=== PATIENT | male | born 1940 | race Two or more races ===

== ENCOUNTER 2018-02-14 20:23 | Emergency (ER) | payer SELFPAY ==
[2018-02-14] MEDS ORDERED: AMPICILLIN/SULBACTAM 3 GM in SODIUM CHLORIDE 0.9% MINIBAG 100 ML IV STA (21:13)
[2018-02-14] MEDS ORDERED: BUPIVACAINE 0.5%-EPI 1:200000 PF 10 ML VIAL SUBQ STA (21:13)
--- NOTE | 2018-02-14 21:19 | ED Physician Documentation ---
PD HPI UPPER EXT INJURY - Stated complaint Stated Complaint: RT HAND SWELLING/PX - Chief complaint Chief Complaint: Ext Problem - History obtained from History obtained from: Patient, Family - History of Present Illness Location: Other (He was gardening 6 days ago and started to feel pain in the right thumb, the IP joint. He has had progressive pain and swelling which now is causing him to lose sleep and is radiating up to the wrist with redness and warmth but no fevers or chills. He has no health problems but does not see a doctor regularly.) Review of Systems Ten Systems: 10 systems reviewed and negative Constitutional: denies: Fever, Chills Cardiac: denies: Chest pain / pressure, Palpitations Respiratory: denies: Dyspnea, Cough GI: denies: Abdominal Pain PD PAST MEDICAL HISTORY - Past Medical History Past Medical History: No Cardiovascular: None Respiratory: None Neuro: None Endocrine/Autoimmune: None GI: None : None HEENT: None Psych: None Musculoskeletal: None Derm: None - Past Surgical History Past Surgical History: Yes Ortho: Spine surgery - Present Medications Home Medications: Ambulatory Orders Medication Instructions Recorded Confirmed Cephalexin [Keflex] 500 mg PO QID #40 capsule 02/14/18 HYDROcod/ACETAM 5/325 [[place] 5/325] 1 - 2 ea PO Q6H PRN #10 tablet 02/14/18 Sulfamethoxazole/Trimethoprim 1 each PO BID 10 Days tablet 02/14/18 [Sulfamethoxazole-Tmp Ds Tablet] - Allergies Allergies/Adverse Reactions: Allergies Allergy/AdvReac Type Severity Reaction Status Date / Time No Known Drug Allergies Allergy Verified 02/14/18 21:46 - Social History Does the pt smoke?: No Smoking Status: Never smoker Does the pt drink ETOH?: No Does the pt have substance abuse?: No - Family History Family history: reports: Non contributory - Immunizations Immunizations are current?: No - POLST Patient has POLST: No PD ED PE NORMAL - Vitals Vital signs reviewed: Yes - General General: Alert and oriented X 3, No acute distress - HEENT HEENT: PERRL, EOMI - Neck Neck: Supple, no meningeal sign, No bony TTP, No JVD - Cardiac Cardiac: RRR, No murmur - Respiratory Respiratory: No respiratory distress, Clear bilaterally - Abdomen Abdomen: Normal bowel sounds, Soft, Non tender - Derm Derm: Normal color, Warm and dry - Extremities Extremities: Other (He has significant edema swelling and redness of the right thumb that seems focused over the proximal phalanx and IP joint. The tip itself is not tender, so it is not really consistent with a felon. He has warmth and redness and tenderness extending up the extensor tendons to the wrist joint and he cannot range the wrist, the MCP, or the IP joint on that side. There is no palpable abscess.) - Neuro Neuro: Alert and oriented X 3, Normal speech - Psych Psych: Normal mood, Normal affect Results - Vitals Vitals: Vital Signs - 24 hr 02/14/18 20:26 Temperature 37.2 C Heart Rate 78 Respiratory 16 Rate Blood Pressure 167/73 H O2 Saturation 98 Oxygen O2 Source Room air - Labs Labs: Laboratory Tests 02/14/18 02/14/18 21:30 21:30 WBC 10.6 RBC 4.81 Hgb 15.7 Hct 45.4 MCV 94.5 H MCH 32.8 H MCHC 34.7 RDW 13.3 Plt Count 196 MPV 8.9 Neut # (Auto) 9.4 H Lymph # (Auto) 0.7 L [place] # (Auto) 0.5 Eos # (Auto) 0.0 Baso # (Auto) 0.0 Absolute Nucleated RBC 0.00 Nucleated RBC % 0.0 Sodium 134 L Potassium 3.5 Chloride 98 L Carbon Dioxide 27 Anion Gap 9.0 BUN 15 Creatinine 0.8 Estimated GFR (MDRD) 93 Glucose 136 H Calcium 8.8 Procedures - Regional nerve block Nerve block site: Radial Right / left: Right Nerve block anesthesia: Marcaine 0.5% (with epi) Nerve block aftercare: Patient tolerated well - Arthrocentesis Joint: Other (Right interphalangeal joint of the thumb) Preparation: Consent obtained, Sterile prep and drape Anesthesia: Lidocaine 1% Fluid: Bloody (Only about 0.2 mL's of bloody fluid was obtained and it was sent for culture.) Aftercare: Dressing applied PD MEDICAL DECISION MAKING - ED course ED course: With cellulitis of the right thumb extending up towards the wrist on the extensor side, definitely not a flexor Tamia synovitis. He was administered Unasyn here. He does not have an elevated white blood cell count but he does have a modest left shift. Pain is not out of proportion to exam and his x-rays without other acute findings. He does not have a primary care physician. He was administered IV Unasyn here, and also oral Bactrim. He had good pain relief with a radial nerve block. Since he does not have primary care follow- up he was advised to follow-up with me tomorrow in the emergency department for wound check. - Sepsis Event Vital Signs: Vital Signs - 24 hr 02/14/18 20:26 Temperature 37.2 C Heart Rate 78 Respiratory 16 Rate Blood Pressure 167/73 H O2 Saturation 98 Oxygen O2 Source Room air Departure - Departure Disposition: Home, Self Care Clinical Impression: Cellulitis Qualifiers: Site of cellulitis: extremity Site of cellulitis of extremity: upper extremity Laterality: right Qualified Code(s): L03.113 - Cellulitis of right upper limb Pain in extremity Qualifiers: Extremity pain location: upper extremity Laterality: right Qualified Code(s): M79.601 - Pain in right arm Condition: Good Record reviewed to determine appropriate education?: Yes Instructions: Cellulitis Dc Prescriptions: Cephalexin [Keflex] 500 mg PO QID #40 capsule HYDROcod/ACETAM 5/325 [[place] 5/325] 1 - 2 ea PO Q6H PRN #10 tablet PRN Reason: Pain Sulfamethoxazole/Trimethoprim [Sulfamethoxazole-Tmp Ds Tablet] 1 each PO BID 10 Days tablet Comments: Follow-up with me tomorrow afternoon in the emergency department for recheck, sooner if worse. Elevate the hand as much as possible. Your blood pressure was elevated today on check into the emergency department. This does not mean that you have hypertension, it is a common phenomenon to come to the emergency department and have elevated blood pressure. I recommend that you see your primary care physician within the week to have it rechecked when you are feeling better.
[2018-02-14 21:44] LABS: BASOPHILS % (AUTO) 0.2 %; EOSINOPHILS % (AUTO) 0.1 %; HGB - HEMOGLOBIN 15.7 g/dL (14.0-18.0); LYMPHOCYTES # (AUTO) 0.7 10^3/uL (1.5-3.5); LYMPHOCYTES % (AUTO) 6.2 %; MEAN CORPUSCULAR HEMOGLOBIN 32.8 pg (27.0-31.0); MEAN CORPUSCULAR HGB CONC 34.7 g/dL (32.0-36.0); MEAN CORPUSCULAR VOLUME 94.5 fL (80.0-94.0); MEAN PLATELET VOLUME 8.9 fL (7.4-11.4); MONOCYTES # (AUTO) 0.5 10^3/uL (0.0-1.0); MONOCYTES % (AUTO) 4.6 %; NEUTROPHILS # (AUTO) 9.4 10^3/uL (1.5-6.6); NEUTROPHILS % (AUTO) 88.9 %; PLT - PLATELET COUNT 196 10^3/uL (130-450); RED BLOOD COUNT 4.81 10^6/uL (4.70-6.10); RED CELL DISTRIBUTION WIDTH 13.3 % (12.0-15.0); WHITE BLOOD COUNT 10.6 x10^3/uL (4.8-10.8)
[2018-02-14 21:45] LABS: CALCIUM 8.8 mg/dL (8.5-10.3); CREATININE 0.8 mg/dL (0.6-1.2)
[2018-02-14] MEDS ORDERED: HYDROcod/ACET 5/325 Prepack 4 PO STA (22:08)
[2018-02-14] MEDS ORDERED: SULFAMETH/TRIMETH DS 800/160 MG TABLET PO STA (22:08)
--- NOTE | 2018-02-14 22:16 | XRAY Report ---
Procedure Date: 02/14/2018 Accession Number: [id number] / [id number] Procedure: XR - Hand 3 View RT CPT Code: FULL RESULT: EXAM: RIGHT HAND RADIOGRAPHY EXAM DATE: 02/14/2018 09:45 PM. CLINICAL HISTORY: Hand infection. COMPARISON: None. TECHNIQUE: 4 views. FINDINGS: Bones: No acute fractures or suspicious bone lesions. No acute erosions or periosteal reaction. Joints: No subluxations. 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 Soft Tissues: Unremarkable. IMPRESSION: No acute radiographic abnormalities. If osteomyelitis is suspected, MRI with contrast would be more sensitive and specific. [facility]
[2018-02-14 22:32] VITALS: BP 156/79
== END 2018-02-14 22:38 | disposition home or self-care (01) ==
LOC: ED 20:23
DX: L03.113 Cellulitis of right upper limb (principal); M79.641 Pain in right hand; R03.0 Elevated blood-pressure reading, without diagnosis of hypertension
CPT/HCPCS: 20610; 36415; 73130; 80048; 85025; 87070; 87205; 96365; 99283; A9270

== ENCOUNTER 2018-02-15 15:00 | Emergency (ER) | payer SELFPAY ==
[2018-02-15 15:17] VITALS: BP 155/76
--- NOTE | 2018-02-15 15:58 | ED Physician Documentation ---
PD HPI UPPER EXT INJURY - Stated complaint Stated Complaint: R HAND PAIN - Chief complaint Chief Complaint: Ext Problem - History obtained from History obtained from: Patient - History of Present Illness Location: Other (He returns as requested for recheck of right upper extremity cellulitis involving the thumb up to the wrist. He is doing much better today, no fevers. Pain went from a 10 to a 4. Culture is no growth to date.) Review of Systems Constitutional: denies: Fever, Chills Respiratory: denies: Dyspnea, Cough GI: denies: Abdominal Pain, Nausea, Vomiting PD PAST MEDICAL HISTORY - Past Medical History Cardiovascular: None Respiratory: None Neuro: None Endocrine/Autoimmune: None GI: None : None HEENT: None Psych: None Musculoskeletal: None Derm: None - Past Surgical History Past Surgical History: Yes Ortho: Spine surgery - Present Medications Home Medications: Ambulatory Orders Medication Instructions Recorded Confirmed Cephalexin [Keflex] 500 mg PO QID #40 capsule 02/14/18 HYDROcod/ACETAM 5/325 [[place] 5/325] 1 - 2 ea PO Q6H PRN #10 tablet 02/14/18 Sulfamethoxazole/Trimethoprim 1 each PO BID 10 Days tablet 02/14/18 [Sulfamethoxazole-Tmp Ds Tablet] - Allergies Allergies/Adverse Reactions: Allergies Allergy/AdvReac Type Severity Reaction Status Date / Time No Known Drug Allergies Allergy Verified 02/14/18 21:46 - Social History Does the pt smoke?: No Smoking Status: Never smoker Does the pt drink ETOH?: No Does the pt have substance abuse?: No - Immunizations Immunizations are current?: No - POLST Patient has POLST: No PD ED PE NORMAL - Vitals Vital signs reviewed: Yes - General General: Alert and oriented X 3, No acute distress - Extremities Extremities: Other (The cellulitis looks much better today, yesterday he really had no range of motion at the IP joint of the right thumb or the wrist and he has moderate range of motion today and he is much less tender.) - Neuro Neuro: Alert and oriented X 3, Normal speech Results - Vitals Vitals: Vital Signs - 24 hr 02/15/18 15:12 Temperature 36.9 C Heart Rate 72 Respiratory 18 Rate Blood Pressure 155/76 H O2 Saturation 96 Oxygen O2 Source Room air PD MEDICAL DECISION MAKING - Sepsis Event Vital Signs: Vital Signs - 24 hr 02/15/18 15:12 Temperature 36.9 C Heart Rate 72 Respiratory 18 Rate Blood Pressure 155/76 H O2 Saturation 96 Oxygen O2 Source Room air Departure - Departure Disposition: 01 Home, Self Care Clinical Impression: Cellulitis Qualifiers: Site of cellulitis: extremity Site of cellulitis of extremity: upper extremity Laterality: right Qualified Code(s): L03.113 - Cellulitis of right upper limb Pain in extremity Qualifiers: Extremity pain location: upper extremity Laterality: right Qualified Code(s): M79.601 - Pain in right arm Instructions: Cellulitis Dc Comments: As discussed it looks like it is doing much better today, if you start to worsen or run fevers please return for reevaluation. Your blood pressure was elevated today on check into the emergency department. This does not mean that you have hypertension, it is a common phenomenon to come to the emergency department and have elevated blood pressure. I recommend that you see your primary care physician within the week to have it rechecked when you are feeling better.
== END 2018-02-15 16:02 | disposition home or self-care (01) ==
LOC: ED 15:00
DX: L03.113 Cellulitis of right upper limb (principal); M79.601 Pain in right arm; R03.0 Elevated blood-pressure reading, without diagnosis of hypertension
CPT/HCPCS: 99282; 99283

== ENCOUNTER 2021-08-11 08:40 | Outpatient (CLI) | payer SELFPAY | END 2021-08-11 08:41 | disposition critical access hospital (66) | LOC: EMS 08:40 | DX: R11.0 Nausea (principal); R53.81 Other malaise; J34.89 Other specified disorders of nose and nasal sinuses; R05.9 Cough, unspecified; R53.1 Weakness; Z20.822 Contact with and (suspected) exposure to COVID-19; W19.XXXA Unspecified fall, initial encounter | CPT/HCPCS: A0425; A0427 ==

== ENCOUNTER 2021-08-11 08:49 | Inpatient (IN) | payer MEDICARE ==
--- NOTE | 2021-08-11 09:04 | ED Physician Documentation ---
PD HPI URI - Stated complaint Stated Complaint: POSS C+ - History obtained from History obtained from: Patient - History of Present Illness Timing - onset: How many days ago (5) Timing duration: Days (5) Timing details: Abrupt onset (Started with symptoms 5 days ago with cough fevers nausea and poor p.o. intake. His tested positive for Covid the week prior.), Still present Associated symptoms: Fever, Chills, Dry cough, Dyspnea Contributing factors: Sick contact (his had COVID the week prior.) Improves by: Rest Worsened by: Activity Similar symptoms before: Has not had sx before Recently seen: Not recently seen Review of Systems Constitutional: reports: Fever, Chills Nose: reports: Congestion Throat: denies: Sore throat Cardiac: denies: Chest pain / pressure Respiratory: reports: Dyspnea, Cough, Wheezing GI: reports: Nausea, Vomiting, Diarrhea. denies: Abdominal Pain : denies: Dysuria Skin: denies: Rash Neurologic: reports: Generalized weakness, Near syncope. denies: Altered mental status, Headache Endocrine: denies: Easy bruising / bleeding Immunocompromised: denies: Immunocompromised, Chemotherapy PD PAST MEDICAL HISTORY - Past Medical History Cardiovascular: None Respiratory: None Neuro: None Endocrine/Autoimmune: None GI: None : None HEENT: None Psych: None Musculoskeletal: None Derm: None - Past Surgical History Past Surgical History: Yes Ortho: Spine surgery - Present Medications Home Medications: Ambulatory Orders Medication Instructions Recorded Confirmed No Known Home Medications 08/11/21 08/11/21 - Allergies Allergies/Adverse Reactions: Allergies Allergy/AdvReac Type Severity Reaction Status Date / Time No Known Drug Allergies Allergy Verified 08/11/21 09:13 - Social History Does the pt smoke?: No Smoking Status: Never smoker Does the pt drink ETOH?: No Does the pt have substance abuse?: No - Immunizations Immunizations are current?: No - POLST Patient has POLST: No PD ED PE NORMAL - Vitals Vital signs reviewed: Yes (sats 88% RA) - General General: Alert and oriented X 3, Well developed/nourished - HEENT HEENT: Pharynx benign. No: Moist mucous membranes - Neck Neck: Supple, no meningeal sign, No adenopathy - Cardiac Cardiac: RRR, No murmur - Respiratory Respiratory: No: Clear bilaterally - Abdomen Abdomen: Normal bowel sounds, Soft, Non distended, No organomegaly, Other (mild tender epigastric area) - Back Back: No CVA TTP - Derm Derm: Warm and dry. No: Normal color (pale) - Extremities Extremities: No edema, No calf tenderness / cord - Neuro Neuro: Alert and oriented X 3, No motor deficit, Normal speech Eye Opening: Spontaneous Motor: Obeys Commands Verbal: Oriented GCS Score: 15 Results - Vitals Vitals: Vital Signs - 24 hr 08/11/21 08/11/21 09:13 09:52 Temperature 37.7 C Heart Rate 81 80 Respiratory 32 H 22 Rate Blood Pressure 137/105 H O2 Saturation 88 L Oxygen O2 Source Nasal cannula Oxygen Flow Rate 3 - Labs Labs: Laboratory Tests 08/11/21 08/11/21 08/11/21 10:00 10:00 10:00 WBC 7.1 RBC 4.94 Hgb 16.0 Hct 46.5 MCV 94.1 H MCH 32.4 H MCHC 34.4 RDW 12.1 Plt Count 127 L MPV 12.0 H Neut # (Auto) 6.5 Lymph # (Auto) 0.3 L [place] # (Auto) 0.3 Eos # (Auto) 0.0 Baso # (Auto) 0.0 Absolute Nucleated RBC 0.00 Nucleated RBC % 0.0 Sodium 135 Potassium 3.7 Chloride 95 L Carbon Dioxide 24 Anion Gap 16.0 H BUN 35 H Creatinine 1.2 Estimated GFR (MDRD) 58 L Glucose 136 H Lactic Acid Calcium 7.9 L Total Bilirubin 1.1 H AST 48 H ALT 26 Alkaline Phosphatase 52 B-Natriuretic Peptide 41 Total Protein 7.0 Albumin 3.2 Globulin 3.8 Albumin/Globulin Ratio 0.8 L Lipase 105 H Nasal Adenovirus (PCR) Nasal B. parapertussis DNA (PCR) Nasal Coronavir 229E PCR Nasal Coronavir HKU1 PCR Nasal Coronavir NL63 PCR Nasal Coronavir OC43 PCR Nasal Enterovir/Rhinovir PCR Nasal Influenza B PCR Nasal Influenza A PCR Nasal Parainfluen 1 PCR Nasal Parainfluen 2 PCR Nasal Parainfluen 3 PCR Nasal Parainfluen 4 PCR Nasal RSV (PCR) Nasal B.pertussis DNA PCR Nasal C.pneumoniae (PCR) Prasad Human Metapneumo PCR Nasal M.pneumoniae (PCR) Nasal SARS-CoV-2 (PCR) 08/11/21 08/11/21 08/11/21 10:00 11:40 12:14 WBC RBC Hgb Hct MCV MCH MCHC RDW Plt Count MPV Neut # (Auto) Lymph # (Auto) [place] # (Auto) Eos # (Auto) Baso # (Auto) Absolute Nucleated RBC Nucleated RBC % Sodium Potassium Chloride Carbon Dioxide Anion Gap BUN Creatinine Estimated GFR (MDRD) Glucose Lactic Acid 3.1 H* 1.6 Calcium Total Bilirubin AST ALT Alkaline Phosphatase B-Natriuretic Peptide Total Protein Albumin Globulin Albumin/Globulin Ratio Lipase Nasal Adenovirus (PCR) NOT DETECTED Nasal B. parapertussis DNA (PCR) NOT DETECTED Nasal Coronavir 229E PCR NOT DETECTED Nasal Coronavir HKU1 PCR NOT DETECTED Nasal Coronavir NL63 PCR NOT DETECTED Nasal Coronavir OC43 PCR NOT DETECTED Nasal Enterovir/Rhinovir PCR NOT DETECTED Nasal Influenza B PCR NOT DETECTED Nasal Influenza A PCR NOT DETECTED Nasal Parainfluen 1 PCR NOT DETECTED Nasal Parainfluen 2 PCR NOT DETECTED Nasal Parainfluen 3 PCR NOT DETECTED Nasal Parainfluen 4 PCR NOT DETECTED Nasal RSV (PCR) NOT DETECTED Nasal B.pertussis DNA PCR NOT DETECTED Nasal C.pneumoniae (PCR) NOT DETECTED Prasad Human Metapneumo PCR NOT DETECTED Nasal M.pneumoniae (PCR) NOT DETECTED Nasal SARS-CoV-2 (PCR) DETECTED A - Rads (name of study) chest xray Radiology: Prelim report reviewed (diffuse infiltrates concerning for COVID.), See rad report PD MEDICAL DECISION MAKING - ED course Complexity details: reviewed results, considered differential (Close contact with Covid patient and now current URI symptoms and pneumonitis symptoms. Presume Covid. He also has poor intake with nausea and vomiting and appears dehydrated. Will give IV fluids as well.), d/w patient ED course: The patient has improved color and a little bit improved energy after IV fluids and nebulizer MDI. However he still maintaining low oxygenation on room air at 87 to 88%. He will need hospitalization for further treatment. I talked with the hospitalist who is in agreement. Departure - Departure Disposition: 66 [facility] DC/Xfer Clinical Impression: Pneumonia due to COVID-19 virus, Hypoxia, Dehydration, Generalized weakness Nausea and vomiting Qualifiers: Vomiting type: unspecified Qualified Code(s): R11.2 - Nausea with vomiting, unspecified Condition: Stable Record reviewed to determine appropriate education?: Yes
[2021-08-11] MEDS ORDERED: ONDANSETRON 4 MG/2 ML VIAL IVP STA (09:30)
[2021-08-11] MEDS ORDERED: SODIUM CHLORIDE 0.9% 1,000 ML IV STA ×2 (09:30→11:25)
[2021-08-11] MEDS ORDERED: ALBUTEROL 1 PUFF INH STA (09:31)
[2021-08-11] MEDS ORDERED: DEXAMETHASONE 10 MG/ML VIAL IVP STA (09:32)
--- NOTE | 2021-08-11 09:46 | XRAY Report ---
PROCEDURE: Chest 1 View X-Ray INDICATIONS: chest pain TECHNIQUE: One view of the chest was acquired. COMPARISON: None. FINDINGS: Surgical changes and devices: None. Lungs and pleura: No pleural effusions or pneumothorax. Subtle airspace opacities are seen scattered in bilateral lung limon more prominent in lower lobes concerning for multilobar infiltrates possibl y from COVID 19 infection. Mediastinum: Mediastinal contours appear normal. Heart size is normal. Bones and chest wall: No suspicious bony lesions. Overlying soft tissues appear unremarkable. IMPRESSION: Finding is concerning for bilateral patchy infiltrates possibly from COVID 19 infection. No pleural e ffusion or pneumothorax. Reviewed by: Loki Chaney MD on 08/11/2021 9:45 AM [facility] Approved by: Loki Chaney MD on 08/11/2021 9:45 AM [facility] Station ID: [id number]
[2021-08-11 10:20] LABS: ALBUMIN 3.2 g/dL (3.2-5.5); ALBUMIN/GLOBULIN RATIO 0.8 (1.0-2.2); BILIRUBIN,TOTAL 1.1 mg/dL (0.2-1.0); CALCIUM 7.9 mg/dL (8.5-10.3); CREATININE 1.2 mg/dL (0.6-1.2); POTASSIUM 3.7 mmol/L (3.5-5.0)
[2021-08-11 10:43] LABS: BASOPHILS % (AUTO) 0.1 %; HCT - HEMATOCRIT 46.5 % (42.0-52.0); LYMPHOCYTES # (AUTO) 0.3 10^3/uL (1.5-3.5); MEAN CORPUSCULAR HEMOGLOBIN 32.4 pg (27.0-31.0); MEAN CORPUSCULAR HGB CONC 34.4 g/dL (32.0-36.0); MEAN CORPUSCULAR VOLUME 94.1 fL (80.0-94.0); MONOCYTES # (AUTO) 0.3 10^3/uL (0.0-1.0); MONOCYTES % (AUTO) 3.7 %; NEUTROPHILS # (AUTO) 6.5 10^3/uL (1.5-6.6); NEUTROPHILS % (AUTO) 91.6 %; PLT - PLATELET COUNT 127 10^3/uL (130-450); RED BLOOD COUNT 4.94 10^6/uL (4.70-6.10); RED CELL DISTRIBUTION WIDTH 12.1 % (12.0-15.0); WHITE BLOOD COUNT 7.1 x10^3/uL (4.8-10.8)
[2021-08-11] MEDS ORDERED: ONDANSETRON 4 MG/2 ML VIAL IVP PRN (12:27)
[2021-08-11] MEDS ORDERED: ONDANSETRON ODT 4 MG TABLET TL PRN (12:27)
[2021-08-11] MEDS ORDERED: PROCHLORPERAZINE 10 MG/2 ML VIAL IVP PRN (12:27)
[2021-08-11] MEDS ORDERED: SODIUM CHLORIDE FLUSH 0.9% 10 ML SYRINGE IVP PRN (12:27)
[2021-08-11] MEDS ORDERED: ACETAMINOPHEN 325 MG TABLET PO PRN (12:27)
[2021-08-11] MEDS ORDERED: oxyCODONE 5 MG TABLET PO PRN (12:27)
[2021-08-11] MEDS ORDERED: NON FORMULARY MED (Remdesivir 200 MG) IVP ONE (12:30)
[2021-08-11 12:50] LABS: B. PARAPERTUSSIS- RESP PCR PAN NOT DETECTED; B. PERTUSSIS- RESP PCR PANEL NOT DETECTED; C. PNEUMONIAE- RESP PCR PANEL NOT DETECTED; CORONAVIRUS 229E-RESP PCR NOT DETECTED; CORONAVIRUS HKU1-RESP PCR NOT DETECTED; CORONAVIRUS NL63-RESP PCR NOT DETECTED; CORONAVIRUS OC43-RESP PCR NOT DETECTED; HUMAN METAPNEUMOVIRUS NOT DETECTED; INFLUENZA A- RESP PCR PANEL NOT DETECTED; INFLUENZA B - RESP PCR PANEL NOT DETECTED; M. PNEUMONIAE- RESP PCR PANEL NOT DETECTED; PARAINFLUENZA VIRUS 1 NOT DETECTED; PARAINFLUENZA VIRUS 2 NOT DETECTED; PARAINFLUENZA VIRUS 3 NOT DETECTED; PARAINFLUENZA VIRUS 4 NOT DETECTED; RHINOVIRUS/ENTEROVIRUS NOT DETECTED; RSV- RESP PCR PANEL NOT DETECTED
[2021-08-11 12:54] LABS: SARS-CoV-2 -RESP PCR PANEL DETECTED
[2021-08-11] MEDS: LACTATED RINGERS 1,000 ML IV SCH (14:28)
--- NOTE | 2021-08-11 14:45 | HISTORY & PHYSICAL EXAMINATION ---
Chief Complaint - Chief Complaint Chief Complaint: cough, fatigue and sob History of Present Illness - Admitted From Admitted From:: home via EMS - History Obtained From Records Reviewed: [facility] History obtained from: patient and Dr. Chirinos Exam Limitations: none - History of Present Illness HPI Comment/Other: He is an 81-year-old man who does not have any medical issues and does not see a physician. 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 His became ill with Covid approximately week and a half ago. She is still slightly ill but getting better. He became ill 5 days ago with cough, fevers, severe nausea and very poor p.o. intake. He really has not been able to take anything in because he just has no appetite. Barely drinking water. His nose has been congested, and he has a runny nose. But he denies a sore throat, dysphagia. He denies chest pain, pleuritic chest pain. He has a mild to moderate cough, and it makes him wheeze. Getting up to just walk to the bathroom makes him very short of breath. In addition to being without an appetite he has had diarrhea a few times a day. Occasional vomiting. And chronic and daily nausea. He has a headache but no confusion, seizures, or passing out. He has been so sick that he has been spending a lot of time either sitting or laying down and his buttock is starting to hurt from what he thinks is a sore that developed there. Today he could not get up to do anything so his called the ambulance and they brought him in. He was 88% on room air. Started on 2 L. He was seen in the emergency room was a temperature of 37.7. Heart rate 81. Respirations 32. Blood pressure 137/105. He was 88% on room air. He is a thin male. Mild respiratory distress. Lactic acid is initially 3.1 with a creatinine of 1.2 and a BUN of 35. With fluid resuscitation of 2 L, his lactic acid came down to 1.6. White cell count is normal. Hemoglobin is normal. MCV is 94.1. He is SARS COVID-19 positive. Chest x-ray has bilateral patchy infiltrates without pleural effusion or pneumothorax. History - Past Medical History Cardiovascular: reports: None Respiratory: reports: None Neuro: reports: None Endocrine/Autoimmune: reports: None GI: reports: None : reports: None HEENT: reports: None Psych: reports: None Musculoskeletal: reports: None Derm: reports: None MRSA Hx?: No - Past Surgical History Ortho: reports: Spine surgery - Family & Social History Family History Comment/Other: Dad was 36 when he his 16-year-old bride. He at age 45 of a heart attack. Mom in her late 80s and was healthy. 2 brothers and a sister. 1 brother has high blood pressure. 1 brother of "not taking care of his body". Very vague about what exactly killed him. 3 children. Unfortunately one of his daughters of ovarian cancer but the other 2 children are alive and healthy without any medical issues. Living arrangement: At home Living Situation: With spouse/s.o. Social History Notes: Born and raised in the [facility] and lived all over [place]. [place] the [place] ago when his baby daughter a [employer] en[employer] so he came to be with her. He and his live in their own rental home near 3 sisters. He smoked anywhere between a pack to 2 packs a day and stopped 20 years ago. 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 He denies any history of LSD, cocaine, heroin, LSD. 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 - Substance History Use: Uses substance without health or social issues: NONE Abuse: Recurrent use of substance despite neg consequences: NONE Dependence: Experiences withdrawal or developed tolerances: NONE - POLST Patient has POLST: No POLST Status: DNR Meds/Allgy - Home Medications Home Medications: Ambulatory Orders Medication Instructions Recorded Confirmed No Known Home Medications 08/11/21 08/11/21 - Allergies Allergies/Adverse Reactions: Allergies Allergy/AdvReac Type Severity Reaction Status Date / Time No Known Drug Allergies Allergy Verified 08/11/21 09:13 Review of Systems - Constitutional Constitutional: reports: Fatigue, Fever, Chills, Malaise, Weakness, Poor appet ite, Diaphoresis, Weight loss - Eyes Eyes: denies: Pain, Irritation, Amaurosis, Blurred vision, Vision loss, Dipolpia - Ears, Nose & Throat Ears, Nose & Throat: reports: Nasal obstruction, Nasal congestion, Postnasal drainage. denies: Ear pain, Hearing loss, Hearing aids, Tinnitus, Vertigo - Cardiovascular Cariovascular: reports: Lightheadedness, Exertional dyspnea, Decr. exercise tolerance. denies: Irregular heart rate, Palpitations, Chest pain, Edema, Syncope - Respiratory Respiratory: reports: Cough, Wheezing, Snoring. denies: Sputum production - Gastrointestinal Gastrointestinal: reports: Diarrhea, Nausea, Vomiting. denies: Abdominal pain, Abdominal distention, Black stools, Bloody stools, Reflux/heartburn, Bloating - Genitourinary Genitourinary: denies: Dysuria, Frequency, Urgency, Hematuria, Incontinence, Flank pain, Nocturia - Musculoskeletal Musculoskeletal: reports: Muscle pain, Back pain, Muscle aches, Joint pain - Integumentary Integumentary: denies: Rash, Pruritis, Lesions, Dryness - Neurological Neurological: reports: General weakness, Headache, Memory problems. denies: Pre-existing deficit, Abnormal gait - Psychiatric Psychiatric: denies: Depression, Anxiety, Suicidal, Delusions - Endocrine Endocrine: reports: Intolerance to cold. denies: Polyuria, Polydypsia, Polyphagia - Hematologic/Lymphatic Hematologic/Lymphatic: denies: Anemia, Bruising, Petechiae Prior Level of Functionality: Prior to his illness he was independent. Able to complete all of his activities of daily living. He and his live in their own home when he is able to take care of it with help from his daughter who comes to visit often. He is a great great grandfather. Exam - Vital Signs Reviewed Vital Signs: Yes Vital Signs: Vital Signs x48h Temp Pulse Pulse Resp BP BP Pulse Ox 08/11/21 14:27 36.4 C L 68 24 118/66 92 08/11/21 12:38 78 20 121/67 96 08/11/21 09:52 80 22 08/11/21 09:13 37.7 C 81 32 H 137/105 H 88 L - Physical Exam General Appearance: positive: Alert, Other (Very thin, fatigued, pale male who looks gaunt, cachectic) Eyes Bilateral: positive: PERRL, EOMI ENT: positive: Dry mucous membranes Neck: positive: No JVD, Lymphadenopathy (R), Lymphadenopathy (L). negative: Stiff neck Respiratory: positive: Wheezes, Rales, Other (tachypnea with going to bathroom (toilet)) Cardiovascular: positive: Regular rate & rhythm. negative: JVD present, Systolic murmur, Gallop/S4, Friction rub Peripheral Pulses: positive: 1+ Abdomen: positive: Non-tender, No organomegaly, Nml bowel sounds, No distention Skin: positive: Dry, Other (tented. right mid buttock fold w skin breakdown) Extremities: positive: Full ROM, No pedal edema, Other (very thin extremities) Neurologic/Psychiatric: positive: Oriented x3, CN's nml (2-12), Motor nml, Sensation nml, Weakness (diffuse, SBA with toilet and needed RN to wipe since he was exhausted) Conclusion/Plan - Problem List (1) Pneumonia due to COVID-19 virus Conclusion/Plan: He does not believe he has Covid pneumonia. He is highly suspicious of physicians and medical institutions. Nevertheless, I did explain to him that that is our thought process. He is not resistant to getting remdesivir or Decadron. As such we will give him day 1 of 5 for remdesivir. We will also given day 1 of 10 of Decadron. DVT prophylaxis will be with Eliquis. (2) Hypoxia Conclusion/Plan: Due to pneumonia. We will start with nasal cannula oxygen. Please see advance care planning conversation under separate note. He does not want intubation or CPR. He is okay with us using BiPAP (3) Dehydration Conclusion/Plan: Manifested as dry oral mucosa, skin tenting. I also believe his possible liver disease from alcoholism and his dehydration are the cause of lactic acidosis. Once he was hydrated that rsolved. This is in a patient has had poor, poor p.o. intake for the week. We will hydrated with lactated Ringer's for up to 2 L and see how he does. I have ordered a regular diet but he may not be able to have the appetite for. We may switch him to an sure or a equivalent (4) Generalized weakness Conclusion/Plan: Due to prolonged bedrest and chair rest. Unfortunate of that he will improve much at this point. But will rotate his body, and encouraged him to sit up in chair when possible. (5) Thrombocytopenia Conclusion/Plan: Gentleman has a history of alcoholism but has been sober for 20 years. He said he gave his and daughter a lot of problems when he was drinking. But he denies alcohol withdrawal, seizures, cirrhosis, ascites. Plan: Check PT/INR We may have to avoid Lovenox for DVT prophylaxis and give him a DOAC Check platelets daily Check ultrasound of abdomen and look for hepatomegaly or splenomegaly (6) Pressure ulcer of buttock, right, unstageable Conclusion/Plan: None on admission. Due to prolonged bedrest at home. Skin protocol will be followed by nursing. Pictures will be taken on admission. - Lab Results Lab results reviewed: Yes Fish Bones: 08/11/21 10:00 08/11/21 10:00 - Diagnostic Imaging Results Diagnostic Imaging Results: positive: Final report reviewed Diagnostic Imaging Results Comments: X-ray with bilateral patchy infiltrates. No pleural effusions or pneumothorax. More prominent in lower lobes. - EKG Results EKG Interpreted Independently: No Core Measures - Anticipated LOS I expect patient to be DC'd or transferred within 96 hours.: Yes - DVT/VTE - Prophylaxis VTE/DVT Device ordered at admit?: Yes
[2021-08-11] MEDS ORDERED: REMDESIVIR 100MG VIAL 200 MG in SODIUM CHLORIDE 0.9% 250 ML IV ONE (16:00)
[2021-08-11] MEDS: SODIUM CHLORIDE FLUSH 0.9% 10 ML SYRINGE IVP SCH (16:06)
--- NOTE | 2021-08-11 16:43 | ADVANCE CARE PLANNING NOTE ---
Advance Care Planning - Planning Encounter Date: 08/11/21 Time: 14:00 Purpose: establish code status Parties in Attendance: hospitalist, his RN, and the patient Decisional Capacity of the Patient: alert, oriented, normal speech, makes his own decisions - Diagnosis for Encounter (1) Pneumonia due to COVID-19 virus Summary: Patient is unvaccinated, exposed to his who is also unvaccinated had Covid. Left test. Patient was started on remdesivir, Decadron, and DVT prophylaxis with Eliquis. At this time avoiding Eliquis due to his thrombocytopenia. - Encounter Subjective/Patient's Story: Born and raised in the [facility], , no history of valley fever. [place] to be closer to his youngest daughter. He and his live in independent life [place]. He says that is he is getting older he slowed down and his daughter has been helping little bit more but he still able to do house chores, drive, pay bills. He does not have a physician on a regular basis and is highly suspicious of the medical establishment in general. He takes no medications. Has no chronic long-term problems that he is aware of. He states that he is a firm believer in eating a good diet, taking regular exercise. Especially since he has become a recovered alcoholic he has stopped drinking and smoking. Tries to take care of his body by "putting good food in it" that is organic, without chemicals. As part of this philosophy he does not feel that he should live beyond her normal life span. He feels that he is had a good life. Has a good quality of life. Does not want to see a diminished by any disability. And as such wishes to be a DO NOT RESUSCITATE if he gets so ill that he needs to be intubated or receive CPR. He has not shared that thought process with his or extended family yet Objective/Medical Story: He is an 81-year-old man who does not have any medical issues and does not see a physician. 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 His became ill with Covid approximately week and a half ago. She is still slightly ill but getting better. He became ill 5 days ago with cough, fevers, severe nausea and very poor p.o. intake. He really has not been able to take anything in because he just has no appetite. Barely drinking water. His nose has been congested, and he has a runny nose. But he denies a sore throat, dysphagia. He denies chest pain, pleuritic chest pain. He has a mild to moderate cough, and it makes him wheeze. Getting up to just walk to the bathroom makes him very short of breath. In addition to being without an appetite he has had diarrhea a few times a day. Occasional vomiting. And chronic and daily nausea. He has a headache but no confusion, seizures, or passing out. He has been so sick that he has been spending a lot of time either sitting or laying down and his buttock is starting to hurt from what he thinks is a sore that developed there. Today he could not get up to do anything so his called the ambulance and they brought him in. He was 88% on room air. Started on 2 L. He was seen in the emergency room was a temperature of 37.7. Heart rate 81. Respirations 32. Blood pressure 137/105. He was 88% on room air. He is a thin male. Mild respiratory distress. Lactic acid is initially 3.1 with a creatinine of 1.2 and a BUN of 35. With fluid resuscitation of 2 L, his lactic acid came down to 1.6. White cell count is normal. Hemoglobin is normal. MCV is 94.1. He is SARS COVID-19 positive. Chest x-ray has bilateral patchy infiltrates without pleural effusion or pneumothorax. History - Past Medical History Cardiovascular: reports: None Respiratory: reports: None Neuro: reports: None Endocrine/Autoimmune: reports: None GI: reports: None : reports: None HEENT: reports: None Psych: reports: None Musculoskeletal: reports: None Derm: reports: None MRSA Hx?: No Goals of Care: To receive as minimal medication as possible since he does not like medications. He would like to return to home and still be able to feed himself, dress himself, and take care of his own daily needs. Plan: Start remdesivir, Decadron, support through this acute episode of care with enough oxygen. Short of life-sustaining resuscitation. Code Status: Do Not Attempt Resuscitation Time spent on advance care plannin minutes
[2021-08-11] MEDS ORDERED: ZINC OXIDE 20% OINT 30 GM TUBE TOP PRN (17:13)
--- NOTE | 2021-08-12 00:18 | PROVIDER PROGRESS NOTE ---
Senior Engineer Note - Senior Engineer Note Senior Engineer Note: The patient has had an increase in his oxygen requirements since this evening. He was initially just on nasal cannula and by 10 PM he required high flow nasal cannula. I am now notified by respiratory therapy that he is on 100% FiO2 at 40 L a minute to maintain an oxygen saturation of 93%. The patient himself reports feeling well and feels much better compared to when he first came here. I asked him once again if he would want CPR if it was necessary and he confirmed that he is a DNR. I asked him what his thoughts are regarding mechanical ventilation as he previously told the daytime hospitalist that he would not want intubation. The patient is now uncertain about this and will reconsider. I did ask him if it was okay if I speak with his and he did asked me to call her. I did attempt to call his , Viry, to update her on his clinical condition but there was no answer. At this time, we will transfer the patient to the intensive care unit for closer monitoring. We will obtain a stat ABG. Continue high flow nasal cannula but if he becomes hypoxic on this then he will require BiPAP. We will await decision from the patient if he would want mechanical ventilation or not. Respiratory therapy and myself encouraged him to make this decision as soon as possible. We will continue him on remdesivir and Decadron. We will start empiric antibiotics with ceftriaxone and azithromycin although there has been no evidence of bacterial infection.
[2021-08-12] MEDS: cefTRIAXone 2 GM in SODIUM CHLORIDE 0.9% MINIBAG 100 ML IV SCH ×2 (01:19→10:15)
[2021-08-12] MEDS: AZITHROMYCIN INJ 500 MG in SODIUM CHLORIDE 0.9% 250 ML IV SCH ×2 (02:07→08:25)
[2021-08-12] MEDS: LACTATED RINGERS 1,000 ML IV SCH (02:07)
[2021-08-12] MEDS: SODIUM CHLORIDE FLUSH 0.9% 10 ML SYRINGE IVP SCH ×2 (02:08→08:20)
[2021-08-12 03:32] LABS: ABG BASE EXCESS 1.2 mmol/L (-2.0-3.0); ABG HCO3 20.4 mmol/L (22.0-26.0)
[2021-08-12 03:35] LABS: ABG PCO2 21 mmHg (34-45); ABG PO2 44 mmHg (80-100)
[2021-08-12 03:36] LABS: ABG OXYGEN SATURATION 87 % (94-98); ALLEN TEST POSITIVE
[2021-08-12 06:11] LABS: CALCIUM, IONIZED 0.99 mmol/L (1.15-1.33); VBG PH 7.512 (7.31-7.41)
[2021-08-12 06:20] LABS: HCT - HEMATOCRIT 38.9 % (42.0-52.0); HGB - HEMOGLOBIN 13.6 g/dL (14.0-18.0); LYMPHOCYTES # (AUTO) 0.4 10^3/uL (1.5-3.5); LYMPHOCYTES % (AUTO) 8.1 %; MEAN CORPUSCULAR HEMOGLOBIN 31.9 pg (27.0-31.0); MEAN CORPUSCULAR VOLUME 91.3 fL (80.0-94.0); MEAN PLATELET VOLUME 11.8 fL (7.4-11.4); MONOCYTES # (AUTO) 0.2 10^3/uL (0.0-1.0); MONOCYTES % (AUTO) 4.7 %; NEUTROPHILS # (AUTO) 4.4 10^3/uL (1.5-6.6); NEUTROPHILS % (AUTO) 86.8 %; PLT - PLATELET COUNT 138 10^3/uL (130-450); RED BLOOD COUNT 4.26 10^6/uL (4.70-6.10); WHITE BLOOD COUNT 5.1 x10^3/uL (4.8-10.8)
[2021-08-12 06:21] LABS: CALCIUM 7.3 mg/dL (8.5-10.3); CREATININE 0.6 mg/dL (0.6-1.2); POTASSIUM 3.7 mmol/L (3.5-5.0)
[2021-08-12 06:24] LABS: MAGNESIUM 2.5 mg/dL (1.7-2.8); PHOSPHORUS 2.2 mg/dL (2.5-4.6)
[2021-08-12] MEDS ORDERED: CALCIUM GLUCONATE 2,000 MG in SODIUM CHLORIDE 0.9% 100ML 100 ML IV ONE (06:31)
[2021-08-12] MEDS ORDERED: POTASSIUM CHLORIDE 20 MEQ TABLET PO ONE (06:31)
[2021-08-12] MEDS: NEUTRA-PHOS 250 MG TABLET PO SCH ×2 (08:20→08:29)
[2021-08-12] MEDS ORDERED: DEXAMETHASONE 10 MG/ML VIAL IVP SCH (09:00)
[2021-08-12] MEDS ORDERED: ENOXAPARIN 40 MG/0.4 ML SYRINGE SUBQ SCH (09:00)
--- NOTE | 2021-08-12 11:21 | Discharge Plan ---
Discharge Plan Problem Reviewed?: Yes Disposition: Home, Self Care Condition: Serious Prescriptions: dexAMETHasone [Decadron] 10 mg PO 0800 #20 tablet Diet: Regular Activity Restrictions: Activity as Tolerated Shower Restrictions: No Driving Restrictions: Yes (no driving) Weight Bearing: Full Weight Health Concerns: You presented to our emergency room with cough, congestion, white phlegm, fatigue with chills, and has been sick for 5 days. Your had Covid the week before. And testing you in our emergency room we found you to have Covid with severe pneumonia. Normal oxygen is 100% when we do a finger test. You were 88%. Your chest x-ray showed pneumonia has spread throughout both lungs from Covid pneumonia. We also found you to be dehydrated. And having impending circulatory shock from lactic acidosis. You had also been sitting for so long you were starting to develop skin breakdown of the buttocks of your right buttock. We put you in the hospital to give you oxygen, intravenous hydration and the medications against Covid. Overnight you have worsened and now are requiring 50 L/min of oxygen with a tube that pushes oxygen into your nose. With that you are barely able to saturate to 90%. You have a strong segundo in your confucianist. You have a strong support system in your and daughter. After discussion with me you feel that you would rather go home. You recognize that your risk of dying from this is much higher at home than it is in the hospital. But you feel you have had a good life, you believe in Marcus and prayer I would prefer to be at home with your family. We have spoken to your daughter and your , and they are in agreement with your decision and will be taking you home. Unfortunately you do not have some insurance program so would allow you to have some benefits at home. You are Medicare part a only and do not have Medicare part B. Medicare part B pays for oxygen. That is the most important thing you need right now so you may have to pay for this out of pocket. Plan of Treatment: 1. To go home and be taken care of by your family. Your daughter states that she knows a practitioner who is willing to see you in your home for payne payment only. 2. To go home with oxygen. The highest an oxygen tank can deliver is 15 L. You are currently requiring 35 L minimum, sometimes 50 L. 3. You will go home with Decadron 10 mg daily. It is a 4 mg tablet and you will take 2-1/2 tablets a day for the next 8 days. This will help with the inflammation in your lungs. Care Goals: To hopefully recover from Covid pneumonia through natural immunity, prayers through your community. Assessment: Patient, , and daughter all state the same things. They wish their father to go home and recognize his risk of is higher at home as opposed to in the hospital. But they are all very accepting of possibility of . They will states that he has had a good life, it is a wonderful life, with people that love him and will be with him until the end. No Smoking: If you smoke, Please STOP! Call for help.
--- NOTE | 2021-08-12 11:39 | DISCHARGE SUMMARY ---
"Discharge Summary Admit Date: 08/11/21 Discharge Date: 08/12/21 Discharging Provider: Shamika Dailey MD Primary Care Provider: none Code Status: Do Not Attempt Resuscitation Condition at Discharge: Serious Discharge Disposition: 01 Home, Self Care - DIAGNOSES Discharge Diagnoses with Status of Each Condition: 1. Acute respiratory failure with hypoxia 2. COVID-19 pneumonia 3. Dehydration 4. Lactic acidosis 5. Thrombocytopenia 6. Pressure ulcer right buttock 7. Generalized weakness - HPI History of Present Illness: He is an 81-year-old man who does not have any medical issues and does not see a physician. 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 His became ill with Covid approximately week and a half ago. She is still slightly ill but get ting better. He became ill 5 days ago with cough, fevers, severe nausea and very poor p.o. intake. He really has not been able to take anything in because he just has no appetite. Barely drinking water. His nose has been congested, and he has a runny nose. But he denies a sore throat, dysphagia. He denies chest pain, pleuritic chest pain. He has a mild to moderate cough, and it makes him wheeze. Getting up to just walk to the bathroom makes him very short of breath. In addition to being without an appetite he has had diarrhea a few times a day. Occasional vomiting. And chronic and daily nausea. He has a headache but no confusion, seizures, or passing out. He has been so sick that he has been spending a lot of time either sitting or laying down and his buttock is starting to hurt from what he thinks is a sore that developed there. Today he could not get up to do anything so his called the ambulance and they brought him in. He was 88% on room air. Started on 2 L. He was seen in the emergency room was a temperature of 37.7. Heart rate 81. Respirations 32. Blood pressure 137/105. He was 88% on room air. He is a thin male. Mild respiratory distress. Lactic acid is initially 3.1 with a creatinine of 1.2 and a BUN of 35. With fluid resuscitation of 2 L, his lactic acid came down to 1.6. White cell count is normal. Hemoglobin is normal. MCV is 94.1. He is SARS COVID-19 positive. Chest x-ray has bilateral patchy infiltrates without pleural effusion or pneumothorax. - Past Medical History Cardiovascular: reports: None Respiratory: reports: None Neuro: reports: None Endocrine/Autoimmune: reports: None GI: reports: None : reports: None HEENT: reports: None Psych: reports: None Musculoskeletal: reports: None Derm: reports: None MRSA Hx?: No - Past Surgical History Ortho: reports: Spine surgery - CONSULTS | PROCEDURES Procedures: Chest x-ray with bilateral patchy infiltrates probably from Covid infection. No pleural effusion or pneumothorax. - HOSPITAL COURSE Hospital Course: Patient was placed on Decadron and remdesivir. Over the first night he worsened and had to be transferred to the ICU because of higher oxygen requirements. He required 50 L of nasal cannula, 80% FiO2 to maintain O2 sat of 90%. He was with generalized weakness, very unsafe to stand even at the bedside because of the weakness. On the morning after admission, he stated that he really would prefer to go home. That he had a philosophy that he had had a good life, a loving family, and that he did not want to be in the hospital to be treated because he felt like he might here. I spoke to his and daughter and they confirm that those are his wishes. They would like to honor his wishes and wanted to take him home. I did explain that he had a higher risk of dying at home than in the hospital. He requires quite a bit of oxygen to me normal oxygenation. To complicate the matter, he is only Medicare part a and has no funds to pay for oxygen, medications, palliative care/hospice care services. Daughter stated that she was aware of that and she was making arrangements to try and accommodate his needs at home. Social work also spoke to the family. As such the patient was discharged to home in serious condition. He is req uiring 35 L/min of high flow nasal cannula, 80% FiO2. He is maintain O2 sats at 90% with that at rest. Respiratory rate varies between 23-26. Heart rate is 67. Blood pressure 122/71. He is a lean, cachectic 5 foot 11 inch male. He is so weak that voice is barely audible. He cannot lay down flat. Gets increasingly tachypneic with any exertion such as speaking or sitting up in bed. Lungs have occasional coarse rhonchi that clear with a deep cough. Cough is infrequent but present. Regular rate and rhythm. Abdomen is soft, nontender, hypoactive bowel sounds. Nondistended. Extremities are gaunt, cachectic with severe loss of muscle mass. The right buttock is starting to develop a d ecubitus ulcer that was present on admission. He is discharged in poor condition, high risk of anticipated, greater than 30 minutes spent coordinating discharge with he and family. POLST was filled out to support his decisions and we kept a copy and the original went home with him. - ALLERGIES Allergies/Adverse Reactions: Allergies Allergy/AdvReac Type Severity Reaction Status Date / Time No Known Drug Allergies Allergy Verified 08/11/21 09:13 - MEDICATIONS Home Medications: Ambulatory Orders Medication Instructions Recorded Confirmed Acetaminophen [Tylenol] 650 mg PO Q4HR PRN tablet 08/12/21 dexAMETHasone [Decadron] 10 mg PO 0800 #20 tablet 08/12/21 - LABS Result Diagrams: 08/12/21 05:12 08/12/21 05:12"
[2021-08-12] MEDS ORDERED: REMDESIVIR 100MG VIAL 100 MG in SODIUM CHLORIDE 0.9% 100ML 100 ML IV SCH (12:00)
[2021-08-12 12:15] LABS: DIFFERENTIAL COMMENT MANUAL=AUTO DIFF; PLATELET ESTIMATE, MANUAL NORMAL (130-450,000) (NORMAL); PLATELET MORPHOLOGY NORMAL APPEARANCE (NORMAL); RBC MORPHOLOGY (MULTIPLE) NORMAL APPEARANCE (NORMAL); WBC MORPHOLOGY (MULTIPLE) NORMAL APPEARANCE (NORMAL)
[2021-08-12 15:45] VITALS: BP 122/63
== END 2021-08-12 16:00 | disposition home or self-care (01) | DRG 177 ==
LOC: EDUNIT# → ED 08:49 → MS2 12:27 → ICU 08-12 01:40
PROVIDERS: ADMIT Specialist; ATTEND Specialist
DX: U07.1 COVID-19 (principal); J12.82 Pneumonia due to coronavirus disease 2019; J96.01 Acute respiratory failure with hypoxia; R09.02 Hypoxemia; R11.2 Nausea with vomiting, unspecified; R64 Cachexia; E87.2 Acidosis; E86.0 Dehydration; D69.6 Thrombocytopenia, unspecified; L89.310 Pressure ulcer of right buttock, unstageable; R11.0 Nausea; R19.7 Diarrhea, unspecified; R53.1 Weakness; Z66 Do not resuscitate; Z68.22 Body mass index [BMI] 22.0-22.9, adult
CPT/HCPCS: 36415; 36600; 71045; 80048; 80053; 82330; 82803; 83605; 83690; 83735; 83880; 84100; 85025; 87150; 87631; 93005; 94640; 94664; 96361; 96374; 99285; A9270; J1650; J7120; 0202U